=== PATIENT | male | born 1965 | race Two or more races ===

== ENCOUNTER → 2024-09-27 | Outpatient (CLI) | payer MEDICARE, MEDICAID, SELFPAY ==
--- NOTE | 2024-09-27 | XR_ITS ---
Examination: Cervical spine 3 views Technique one AP lateral coned AP odontoid cervical spine 3 views Exam date and time: 2 32,025 1117 hours INDICATIONS: Chronic neck pain years. FINDINGS: Minimal anterolisthesis C6 on C5 No cervical fracture Intact odontoid Advanced degenerative disc disease C5-C6 with posterior osteophyte formation IMPRESSION: Advanced degenerative disc disease C5-C6
--- NOTE | 2024-09-27 | XR_ITS ---
Examination: PA lateral chest 2 views TECHNIQUE: Upright PA lateral chest 2 views Exam date and time: August 31, 2024 1129 hours INDICATIONS: Smoking history FINDINGS: Right ventricular peritoneal shunt tube Normal heart size No pneumonia or pulmonary edema Mild to moderate hyperexpansion IMPRESSION: Mild to moderate hyperexpansion
== END | disposition home or self-care (01) ==
LOC: CDIM 10:34
PROVIDERS: PCP Nurse Practitioner Primary Care; Referring Provider Nurse Practitioner Primary Care; Visit Provider Nurse Practitioner Primary Care
DX: J98.4 Other disorders of lung (principal); M50.322 Other cervical disc degeneration at C5-C6 level; M79.2 Neuralgia and neuritis, unspecified; Z87.891 Personal history of nicotine dependence
CPT/HCPCS: 71046; 72040

== ENCOUNTER → 2025-04-03 | Outpatient (CLI) | payer MEDICARE, MEDICAID, SELFPAY ==
--- NOTE | 2025-04-03 11:04 | XR_ITS ---
EXAMINATION: Left knee 2 views TECHNIQUE: AP lateral left knee 2 views Date and time: April 03, 2025, 1210 hours INDICATIONS: Patient fell 4 days ago with injury to the knee, knee pain. FINDINGS: Acute fracture traversing the midportion of the patella without significant offset Blood in the joint space IMPRESSION: Acute patellar fracture
--- NOTE | 2025-04-03 11:04 | XR_ITS ---
EXAMINATION: AP bilateral knees single view TECHNIQUE: AP standing bilateral knees single view Date and time: April 02, 2025, 12 0 5:00 p.m. INDICATIONS: Left knee pain after falling 4 days ago. FINDINGS: Moderate osteopenia No fracture or dislocation involving either knee Bilateral mild to moderate osteoarthritis medial lateral joint spaces IMPRESSION: No acute fractures
== END | disposition home or self-care (01) ==
PROVIDERS: PCP Nurse Practitioner Primary Care; Referring Provider Nurse Practitioner Primary Care; Visit Provider Nurse Practitioner Primary Care
DX: S82.092A Other fracture of left patella, initial encounter for closed fracture (principal); W19.XXXA Unspecified fall, initial encounter
CPT/HCPCS: 73560; 73565

== ENCOUNTER → 2025-05-01 | Outpatient (CLI) | payer MEDICARE, MEDICAID, SELFPAY ==
--- NOTE | 2025-05-01 13:55 | XR_ITS ---
EXAMINATION: Left knee 4 views TECHNIQUE: AP lateral oblique axial left knee 4 views Date and time: May 01, 2025, 1434 hours INDICATIONS: Patient fell 2 months ago with injury of the knee, knee pain. FINDINGS: Severe osteopenia Acute fracture traversing the midportion of the patella, anterior to posterior, without significant offset No major offset IMPRESSION: Acute patellar fracture
--- NOTE | 2025-05-01 13:55 | XR_ITS ---
EXAMINATION: AP bilateral knees single view TECHNIQUE: Standing AP bilateral knees single view Date and time: May 01, 2025, 1432 hours INDICATIONS: Patient fell 2 months ago with injury to both knees, bilateral knee pain. FINDINGS: Severe osteopenia Moderate narrowing medial lateral joint spaces No foreign bodies IMPRESSION: No acute fractures
== END | disposition home or self-care (01) ==
LOC: CDIM 13:19
PROVIDERS: PCP Nurse Practitioner Primary Care; Referring Provider Nurse Practitioner Primary Care; Visit Provider Nurse Practitioner Primary Care
DX: S82.002D Unspecified fracture of left patella, subsequent encounter for closed fracture with routine healing (principal); S89.91XD Unspecified injury of right lower leg, subsequent encounter; W19.XXXD Unspecified fall, subsequent encounter
CPT/HCPCS: 73564; 73565